=== PATIENT | female | born 1930 | race Caucasian/White ===

== ENCOUNTER → 2016-08-16 | Outpatient (CLI) | payer MEDICARE, OTHER ==
[~2016-08-16] MED LIST: ACETAMINOPHEN PO; AMLODIPINE BESYL5 MG PO; ASPIRIN EC81 M1 PO; ASPIRIN81 M1 PO; ASPIRIN81 M2 PO; AVALIDE 300-251 TAB PO; CENTRUM SILVER PO; CENTRUM SILVER1 EAC2 PO; CLONIDINE PO; COUMADIN5 MG PO; DIGOXIN125 MCG PO; FLAGYL PO; HYDROCODON-ACE1 EAC7 PO; LANOXIN125 MCG PO; LASIX20 MG PO; LEVAQUIN PO; LEXAPRO PO; LORTAB 10-5001 EACH PO; LOSARTAN-HCTZ1 EAC1 PO; MELATONIN3 M1 PO; MELATONIN3 MG PO; METOPROLOL ER PO; NEXIUM PO; NORVASC PO; SIMVASTATIN10 MG PO; TOPROL XL 50 MG50 MG PO; TOPROL XL PO; ZOCOR; ZOCOR10 MG PO
== END | disposition home or self-care (01) ==
LOC: CLAB 10:34
DX: M81.0 Age-related osteoporosis without current pathological fracture (principal)
CPT/HCPCS: 36415; 82310; 96372; J0897

== ENCOUNTER 2016-09-09 04:54 | Emergency (ER) | payer MEDICARE, OTHER ==
--- NOTE | ~2016-09-09 | CT57 ---
[facility] A Service of [facility] RADIOLOGY TEXT RESULTS PATIENT: ERICKSON RIVER LOCATION: [facility] : 28 UNIT #: [id number] AGE: [address]: Jemal Smith MD SEX: F ORDER DR: [id number] [facility] [address] [place], [place] [address] [id number] E MR#: [id number] Acc #: [id number] NAME: ERICKSON RIVER : 1930 SEX: F STUDY DATE/TIME: 09/09/2016 UNIT: [facility] ROOM: STUDY DESCRIPTION: CT Chest Wo Cont Attending Physician: Jemal Smith M.D. Ordering Physician: Jemal Smith M.D. Primary Care Physician: Huyen Thompson MEDICAL IMAGING REPORT This report is preliminary unless electronic signature is present EXAM Chest CT, 09/09/2016 at 05:13. HISTORY Upper back pain and right-sided chest pain after fall last Sunday. History of uterine cancer and hypertension. TECHNIQUE Axial noncontrasted images were obtained through the chest. Multiplanar reformats were obtained. This CT exam was performed with one or more of the following radiation dose reduction techniques: automatic exposure control, adjustment of mA and/or kV according to patient size, and iterative reconstruction. COMPARISON No comparison chest CT. FINDINGS There is atherosclerotic disease and coronary artery disease, status post CABG. There is a large hiatal hernia containing the gastric fundus and a portion of the gastric body, as well as abdominal fat. There is no adenopathy. There is no pleural or pericardial effusion. There is some mild atelectasis in both lower lobes. There is also some linear atelectasis or scarring in the anterior right upper lobe. There is no pneumothorax. There is prominent thoracic kyphosis, due to old lower thoracic compression fractures. Patient is status post kyphoplasty of what appears to be T12 and L1. Upper abdomen shows cholecystectomy. There is renal cortical thinning, and there is atherosclerotic disease. IMPRESSION 1. No acute fractures are seen in the chest or thoracic spine. There are old lower thoracic compression deformities with resultant kyphosis. [facility] A Service of [facility] RADIOLOGY TEXT RESULTS PATIENT: ERICKSON RIVER LOCATION: [facility] : 28 UNIT #: [id number] AGE: [address]: Jemal Smith MD SEX: F ORDER DR: 2. Large hiatal hernia with adjacent atelectasis in the lower lobes. 3. Atherosclerotic disease and coronary artery disease. Dictated by... Bill Duque Jr., M.D. THIS IS AN ELECTRONICALLY VERIFIED REPORT Bill Duque Jr., M.D. at 09/09/2016 12:40 PM CHAU/luba TD: 09/09/2016 10:48 JOB #: [id number] MEDICAL IMAGING REPORT Page 1 of 1 COPY
== END 2016-09-09 06:23 | disposition home or self-care (01) ==
LOC: CED 04:54
DX: S20.211A Contusion of right front wall of thorax, initial encounter (principal); I25.10 Atherosclerotic heart disease of native coronary artery without angina pectoris; E78.5 Hyperlipidemia, unspecified; I12.9 Hypertensive chronic kidney disease with stage 1 through stage 4 chronic kidney disease, or unspecified chronic kidney disease; N18.9 Chronic kidney disease, unspecified; Z86.73 Personal history of transient ischemic attack (TIA), and cerebral infarction without residual deficits; Z95.1 Presence of aortocoronary bypass graft; Z90.49 Acquired absence of other specified parts of digestive tract; Z88.0 Allergy status to penicillin; Z88.2 Allergy status to sulfonamides; Z88.5 Allergy status to narcotic agent; Z88.8 Allergy status to other drugs, medicaments and biological substances; Z79.899 Other long term (current) drug therapy; W19.XXXA Unspecified fall, initial encounter
CPT/HCPCS: 71250; 99284

== ENCOUNTER → 2017-02-20 | Outpatient (CLI) | payer MEDICARE, OTHER ==
--- NOTE | ~2017-02-20 | CT71 ---
[facility] A Service [facility] RADIOLOGY TEXT RESULTS PATIENT: ERICKSON RIVER LOCATION: [facility] : 28 UNIT #: [id number] AGE: [address]: ZACHERY PHIPPS SEX: F ORDER DR: [id number] [id number] [place], [place] [address] [id number] O MR#: [id number] Acc #: [id number] NAME: ERICKSON RIVER : 1930 SEX: F STUDY DATE/TIME: 02/20/2017 15:13 UNIT: [facility] ROOM: STUDY DESCRIPTION: CT Head Wo Contrast Ordering Physician: Abraham Jimenez MEDICAL IMAGING REPORT This report is preliminary unless electronic signature is present EXAM CT head without contrast 02/20/2017 HISTORY 86-year-old female with progressive memory loss and dizziness for [address] head 03/25/2015. TECHNIQUE Routine unenhanced axial images performed through the brain. This CT exam was performed with one or more of the following radiation dose reduction techniques: automatic exposure control, adjustment of mA and/or kV according to patient size, and iterative reconstruction. FINDINGS No hemorrhage, acute infarction, mass lesion, or abnormal extraaxial fluid collection. No midline shift or focal mass effect. Ventricular system normal in size and configuration. Moderate generalized atrophy and chronic small vessel disease is unchanged from the prior exam. 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 No acute bony abnormality. Visualized paranasal sinuses and mastoid air cells are clear. IMPRESSION 1. No acute intracranial abnormality. 2. Stable moderate generalized atrophy and chronic small vessel disease. Stable remote lacunar infarcts in the bilateral basal ganglia. Dictated by... [facility] A Service [facility] RADIOLOGY TEXT RESULTS PATIENT: ERICKSON RIVER LOCATION: [facility] : 28 UNIT #: [id number] AGE: [address]: ZACHERY HPIPPS SEX: F ORDER DR: Shivam K. Gómez, M.D. THIS IS AN ELECTRONICALLY VERIFIED REPORT Shivam Gómez M.D. at 02/21/2017 10:11 AM RAFAEL/mala TD: 02/20/2017 23:04 JOB #: [id number] MEDICAL IMAGING REPORT Page 1 of 1 COPY
== END | disposition home or self-care (01) ==
LOC: CCAT 14:47
DX: R41.82 Altered mental status, unspecified (principal); R26.0 Ataxic gait; H54.8 Legal blindness, as defined in USA; I11.0 Hypertensive heart disease with heart failure; I50.9 Heart failure, unspecified; G31.9 Degenerative disease of nervous system, unspecified; I67.9 Cerebrovascular disease, unspecified
CPT/HCPCS: 70450